=== PATIENT | male | born 1980 | race Caucasian/White ===

== ENCOUNTER → 2017-11-01 | Outpatient (CLI) | payer OTHER, MEDICARE ==
--- NOTE | 2017-11-05 11:38 | CT ---
EXAM DESCRIPTION: Chest w/o Contrast CLINICAL HISTORY: COUGH. R05 COMPARISON: None available TECHNIQUE: Chest CT was performed without IV contrast. This exam was performed according to our departmental dose-optimization program, which includes automated exposure control, adjustment of the mA and/or kV according to patient size and/or use of iterative reconstruction technique. FINDINGS: [place] shaped soft tissue density structure in the anterior mediastinum measuring up to 5 or 6 cm craniocaudal is new from Mar, 2012. There is no thoracic aortic aneurysm. Limited sensitivity for detection of adenopathy due to lack of IV contrast, but no mediastinal or hilar adenopathy is seen. The main pulmonary artery is not dilated. There is a small left-sided pleural effusion. No right-sided pleural effusion is seen. There is a trace amount of pericardial fluid. There is mild platelike atelectasis in both lung bases. Patchy areas of groundglass density are also noted in the lung bases bilaterally, nonspecific. No additional airspace consolidation or lung mass is identified. There is no suspicious lung nodule. The central airways are clear. The liver and spleen are only partially included on this exam, question splenomegaly, but visualized portions of the upper abdomen are otherwise unremarkable for noncontrast technique. There is no concerning bone lesion. IMPRESSION: Small left-sided pleural effusion with patchy areas of groundglass density in both lung bases. Findings are nonspecific, and differential considerations include atypical infection or pneumonitis. No additional abnormality to explain patient symptoms. Soft tissue density structure in the anterior ascending, new from Mar, 2012. Based on its shape and lack of mass effect on adjacent structures, this may represent normal thymus (thymic rebound). Lymphoma or other anterior mediastinal mass is considered less likely but not completely excluded. Follow-up chest CT in 3-4 months is recommended for further evaluation. Electronically signed by: Shaan Garber MD 11/05/2017 11:37 AM [employer]
== END ==
LOC: CT 16:15
PROVIDERS: ATTEND Nurse Practitioner Family
DX: R05 Cough (principal); J90 Pleural effusion, not elsewhere classified